=== PATIENT | female | born 1960 | race Caucasian/White ===

== ENCOUNTER 2025-03-18 12:42 | Outpatient (AMB) | payer MEDICARE, MEDICAID, SELFPAY ==
--- OUTSIDE RECORDS SUMMARY | 2025-03-18 12:44 | XMS_ITS | Encounter Summary ---
Author Organization [facility] Address [address] [place] [address] Phone Care Team Providers Care Team Leader Surgery Name Role Phone Winnie Beckford CNP Primary Care Prov ider Encounter Details Date Type Department Care Team (Late st Contact Info) Description 12/22/2024 Procedure Pass [facility], [address] [address] Social History Tobacco Use Types Packs/Day Years Used Date Smoking Tobacco: Never Assessed Education Answer Date Recorded Are you interested in more education? Not on shon e 12/24/2024 Are you concerned about learning? Not on file 12/24/2024 No 12/24/2024 No 12/24/2024 Digital Access Answer Date Recorded No 12/24/2024 No 12/24/2024 Reliable internet access at home? Not on file 12/24/2024 Device with a working camera? Not on file Comments Unknown Sex and Gender Information Value Date Recorded Sex Assigned at Not on file Legal Sex Female 10:34 PM EDT Gender Identity Not on file Sexual Orientation Not on file documented as of this encounter Plan of Treatment Not on file documented as of this encounter Visit Diagnoses Not on filedocumented in this encounter Care Teams Team Leader Surgery Relationship Specialty Start Date End Date Winnie Beckford CNP [address] [place] [address] PCP - General Nurse Practitioner 12/24/24 documented as of this encounter Additional Source Comments The information contained in this document represents components of the legal health record. It is not the complete legal health record.[facility]
--- OUTSIDE RECORDS SUMMARY | 2025-03-18 12:44 | XMS_ITS | Encounter Summary ---
Author Organization [facility] Address [address] [place] [address] [address] [place] [address] Care Team Providers Care Forest Ranger Name Role Phone Kye Piper Unavailable Unavailable Winnie Beckford Primary Care Provider [phone] Reason for Visit * Reason Onset Date Comments Med Refill 10/04/2024 Encounter Details Date Type Department Care Team (Late st Contact Info) Description 10/04/2024 Refill [place] [facility] [address] [place] [address] Winnie Beckford FNP [address] [place] [id number] Chronic, continuous use of opioids Social History Tobacco Use Types Packs/Day Years Used Date Smoking Tobacco: Every Day Cigarettes Smokeless Tobacco: Never Comments:Pt states I'm quit ting on my own time Alcohol Use Standard Drinks/Week Comments Yes 0 (1 standard drink = 0.6 oz pur e alcohol) Housing Stability Answer Date Recorded What is your housing situation today? I have ashley grissom 08/12/[address] you li ve. Do you have problems with any of the following? None of the above 08/12/2023 Food Insecurity Answer Date Recorded Within the past 12 months, y ou worried that your food would run out before you got money to buy more: Sometimes True 2022 Within the past 12 months,th e food you bought just didn't last and you didn't have enough money to get more: Sometimes True 08/12/2023 Transportation Answer Date Recorded In the past 12 months, has l ack of transportation kept you from medical appts, meetings, work or from getting things needed for daily living? No 08/12/2023 Utilities Answer Date Recorded In the past 12 months, has t he electric, gas, oil or water company threatened to shut off services in your home? No 08/12/2023 Depression Answer Date Recorded Patient Health Questionnaire-2 Score 0 08/12/2023 Comments Unknown Sex and Gender Information Value Date Recorded Sex Assigned at Female 07/31/2022 12:00 PM EST Legal Sex Female 8:33 PM EDT Gender Identity Female 07/31/2022 12:00 PM EST Sexual Orientation Choose not to disclose 2022 6:21 AM EST documented as of this encounter Miscellaneous Notes * Telephone Encounter - Logan Garcia CMA - 10/05/2024 9:39 AM EST Pt was switched over to the 5 mg without tylenol 09/03/2024, please discontinue the hydrocodone with tylenol on your end. We sent the 5 mg around 9:00 am today. Thanks. documented in this encounter Plan of Treatment Not on file documented as of this encounter Visit Diagnoses Diagnosis Chronic, continuous use of opioids documented in this encounter Care Teams Forest Ranger Relationship Specialty Start Date End Date Winnie Beckford FNP [address] [place] [id number] PCP - General Family Medicine 03/01/24 Kye Piper Community Health Worker 08/18/23 documented as of this encounter
--- NOTE | 2025-03-18 12:57 | HO.SPINEOV ---
Vital Signs 03/18/25 13:01 Height 5 ft 2 in Weight 128 lb BMI 23.4 Intake Visit Reasons: cervical degenerative disc disease/severe LP Intake Note: Ms. Lara is here today c/o severe low back pain. [employer]orer [employer] Required: No Allergies codeine Allergy (Unknown, Verified 03/18/25 13:01) Unknown doxycycline Allergy (Verified 03/18/25 13:01) Rash Physical Exam Vital Signs: BMI result Body Mass Index 23.4 Assessment & Plan Assessment & Plan (1) Spondylolisthesis, lumbar region: Code(s): M43.16 - Spondylolisthesis, lumbar region Category: Medical Plan: Dear colleague Thank you for referring Marianela Lara to the office today with a chief complaint of low back pain. HPI: This 64-year-old female has a longstanding history of low back pain in the center of the lumbosacral spine without radiation into her legs. She states that his symptoms are going on at least since 2007. She has tried physical therapy chiropractic therapy and injections including facet blocks. The latter did give her relief. 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 The pain gets worse with standing walking and improves when she sits down and find a comfortable position. The pain prevents her from doing anything but light duties. She has been on narcotics for multiple years. She denies weakness or numbness. The patient also has neck pain without radiation down her arm. The back pain is worse than the neck symptoms. PMH: COPD, anxiety, bowel resection in 2019 Medications: Oxycodone Spiriva, Xanax and Flexeril Allergies: None Social history: Smokes a half a pack a day. Physical Exam: Pleasant female. Pain arises when she goes from sitting to standing. Extension is more painful than flexion and both are very painful. Straight leg raise is negative. No motor or sensory deficits. Radiological Studies: MRI of the lumbar spine done at [facility] on 01/17/2025 shows a grade 1 L4-5 spondylolisthesis and associated [id number] central spinal stenosis. There is also a small disc fragment behind the body of L5 without nerve compression. Dynamic lumbar x-rays show instability at the L4-5 segment and a unilateral disc collapse at L3-4 causing a scoliotic deformity at this level.. An MRI of the cervical spine shows C5-6 degenerative disc disease with compression of the left C6 nerve root. Impression/Plan: This 64-year-old female suffering from chronic debilitating low back pain that could be associated with the L4-5 spondylolisthesis and associated spinal stenosis, and the unilateral L3-4 disc collapse with scoliosis. Her pathology makes her candidate for an L3-L5 lumbar fusion through a minimally invasive oblique approach and possible conversion to a transforaminal lumbar interbody fusion if her previous abdominal surgery prevents me from performing the oblique lumbar interbody fusion safely. I quoted 60% success rate and would only recommended if her quality of life is severely affected. She will discuss the option with the you. Thank you for allowing me to participate in your patients care. total time spent was 50 minutes in counseling ,coordination of plan, personal review of imaging, surgical decision making and subsequent plan Andrew Meier MD, PhD Spine Fellowship Trained Neurosurgeon Director, [facility] Orders: Orders XR lumbar spine 4V min Today M43.16 - Spondylolisthesis, lumbar region Coding Level of Care Code New Pt Level 4 (28446) Diagnoses Spondylolisthesis, lumbar region M43.16
[2025-03-18 13:01] VITALS: BMI 23.4
== END 2025-03-18 14:36 | disposition home or self-care (01) ==
LOC: HO.HNS 12:42
PROVIDERS: PCP Nurse Practitioner Family; Referring Provider Nurse Practitioner Family; Visit Provider Neurological Surgery
DX: M43.16 Spondylolisthesis, lumbar region (principal)
CPT/HCPCS: 99204

== ENCOUNTER 2025-03-18 12:42 | Outpatient (REF) | payer MEDICARE, MEDICAID, SELFPAY ==
--- NOTE | ~2025-03-18 | XR_ITS ---
EXAMINATION: XR LUMBAR SPINE 4 OR MORE VIEWS HISTORY: M43.16 - Spondylolisthesis, lumbar region COMPARISON: There are no prior studies for comparison. FINDINGS: AP, and neutral, flexion, and extension lateral views of the lumbar spine are submitted. Osseous mineralization is normal. There is mild to moderate levoscoliosis. Five nonrib-bearing lumbar vertebral bodies are identified, maintaining normal height without evidence of fracture. There is grade I spondylolisthesis of L4 on L5 measuring approximately 7 mm. There is no significant change with flexion or extension. There is moderate to severe disc space narrowing at multiple levels. There is facet osteoarthritis. The visualized paraspinal soft tissues are unremarkable. XR/XR lumbar spine 4V min IMPRESSION: Mild to moderate levoscoliosis. Diffuse moderate degenerative disc disease. Grade I spondylolisthesis of L4 on L5 without change with flexion or extension. Electronically signed by: Isma Salamanca MD 03/18/2025 01:44 PM EDT
== END 2025-03-18 12:43 | disposition home or self-care (01) ==
LOC: HO.HOSX 12:42
PROVIDERS: PCP Nurse Practitioner Family; Referring Provider Nurse Practitioner Family; Visit Provider Neurological Surgery
DX: M43.16 Spondylolisthesis, lumbar region (principal)
CPT/HCPCS: 72110; 99202

== ENCOUNTER → 2025-03-18 13:32 | Outpatient (BNV) | payer MEDICARE, MEDICAID, SELFPAY | PROVIDERS: PCP Nurse Practitioner Family; Referring Provider Nurse Practitioner Family; Visit Provider Radiology Diagnostic Radiology | DX: M51.369 Other intervertebral disc degeneration, lumbar region without mention of lumbar back pain or lower extremity pain (principal) | CPT/HCPCS: 72110 ==